=== PATIENT | female | born 1980 ===

== ENCOUNTER 2017-09-14 12:17 | Emergency (ER) | payer MEDICAID, OTHER ==
[2017-09-14 12:17] VITALS: BMI 28.3
[2017-09-14] MEDS ORDERED: Lidocaine 5% Patch TD STA (12:48)
--- NOTE | 2017-09-14 12:49 | C.PDOC ---
History Of Present Illness 36 yr old female with PMHx of asthma, fibroids and hysterectomy, presents to the ER with complaints of low back pain for the past 2 days. Patient reports she went to [facility] 3 days ago and yesterday and was told she is in need of MRI for possible Herniated disc. Patient also states her left foot went numb for 2 hrs yesterday and it began to tingle and got better. States her left foot felt weak. States the pain is 8/10 and stabbing in nature. Patient reports using Aleve and muscle relaxer. Patient states the pain is worse when she stands and bends. Denies chest pain, SOB, nausea, vomiting, abdominal pain, dysuria, hematuria, bowel and bladder incontinence, weakness or numbness. Time Seen by Provider: 09/14/17 12:38 Chief Complaint (Nursing): Back Pain History Per: Patient History/Exam Limitations: no limitations Onset/Duration Of Symptoms: Days (2 weeks) Past Medical History Reviewed: Historical Data, Nursing Documentation, Vital Signs Vital Signs: Last Vital Signs Temp 98.2 F 09/14/17 12:21 Pulse 74 09/14/17 14:47 Resp 18 09/14/17 14:47 BP 119/86 09/14/17 14:47 Pulse Ox 98 09/14/17 15:30 - Medical History PMH: Arthritis, Asthma, Back Problems, Chronic Pain (neck) Family History: States: Diabetes - Social History Hx Tobacco Use: No Hx Alcohol Use: No Hx Substance Use: No - Immunization History Hx Tetanus Toxoid Vaccination: No Hx Influenza Vaccination: No Hx Pneumococcal Vaccination: No Review Of Systems Except As Marked, All Systems Reviewed And Found Negative. Cardiovascular: Negative for: Chest Pain Respiratory: Negative for: Shortness of Breath Gastrointestinal: Negative for: Nausea, Vomiting, Abdominal Pain Genitourinary: Negative for: Dysuria, Incontinence, Hematuria Musculoskeletal: Positive for: Back Pain (Low back pain), Other (Left foot weakness) Neurological: Negative for: Weakness, Numbness Physical Exam - Physical Exam Appears: Non-toxic, No Acute Distress Skin: Warm, Dry, No Rash Head: Atraumatic, Normacephalic Oral Mucosa: Moist Respiratory: Normal Breath Sounds, No Rales, No Rhonchi, No Stridor, No Wheezing Gastrointestinal/Abdominal: Normal Exam, Soft, No Tenderness, No Guarding, No Rebound Back: Other ((+) Low back pain L4 an L5. Pain with bending.) Extremity: Normal ROM, No Tenderness, No Calf Tenderness, Capillary Refill (<2 secs), No Swelling Neurological/Psych: Oriented x3, Normal Speech, Normal Motor, Normal Sensation ED Course And Treatment O2 Sat by Pulse Oximetry: 98 (RA) Pulse Ox Interpretation: Normal - CT Scan/US MRI - Spinal Canal Lumbar Other Rad Studies (CT/US): Read By Radiologist, Radiology Report Reviewed CT/US Interpretation: PROCEDURE: MR LUMBAR SPINE WITHOUT CONTRAST. HISTORY: Low back pain left leg weak;r/o cord compression. COMPARISON: None available. TECHNIQUE: Multiecho multiplanar sequences were performed through the lumbar spine without the use of intravenous contrast. FINDINGS: Normal lumbar lordosis. Vertebral body heights are preserved. Marrow signal unremarkable. Conus medullaris unremarkable at the level of T12. Paraspinal soft tissues are unremarkable. T12-L1: No disc herniation, spinal canal stenosis or neural foraminal narrowing. L1-2: Mild degenerative disc changes. No disc herniation, spinal canal stenosis or neural foraminal narrowing. L2-3: Moderate degenerative disc changes. Small osteophyte disc bulge complex noted without evidence of significant spinal or neural foraminal narrowing. L3-4: Small to moderate size osteophyte disc bulge complex associated with mild posterior ligament hypertrophy which resulting in mild spinal stenosis. No evidence of significant neural foraminal narrowing. L4-5: Small broad-based disc bulge noted without evidence of significant spinal or neural foraminal narrowing. L5-S1: No disc herniation, spinal canal stenosis or neural foraminal narrowing. OTHER FINDINGS: None. IMPRESSION: No evidence of cord compression at the lower thoracic spine or at the level of the conus medullaris. [id number] degenerative disc changes more prominent at L2- L3. Small osteophyte disc bulge complex at L2-L3 and L3-L4. Medical Decision Making Medical Decision Making: Initial impression: Low back pain, herniated disc Initial plan: * MRI - Spinal Canal Lumbar * Lidoderm TD * Motrin PO * Tylneol PO * Valium PO Progress note(s): Pt feels better. No cord compression. Will d/c home. Disposition Counseled Patient/Family Regarding: Studies Performed, Diagnosis, Need For Followup, Rx Given - Disposition Referrals: Varinder Lara MD [Medical Doctor] - Disposition: HOME/ ROUTINE Disposition Time: 15:31 Condition: IMPROVED Additional Instructions: Ms. Sherman, thank you for letting us take care of you today. Return to the ER if your symptoms worsen, or if any problems. Take the medication listed below as prescribed. Please call Dr. Varinder Lara (pain management physician) at the phone number listed below for a re-evaluation. Please take a copy of the MRI report with you. Prescriptions: Acetaminophen [Tylenol 325mg tab] 3 tab PO Q6 PRN #30 tab PRN Reason: Pain, Moderate (4-7) Ibuprofen [Motrin Tab] 1 tab PO TID PRN #30 tab PRN Reason: Pain, Moderate (4-7) Lidocaine 5% [Lidoderm] 1 patch TD Q12 PRN #14 patch PRN Reason: Pain, Moderate (4-7) Instructions: Acute Low Back Pain (ED) Forms: [facility] (Spanish), General Discharge Instructions Print Language: LEBANESE - POA Present On Arrival: None - Clinical Impression Clinical Impression: Back pain - Scribe Statement The provider has reviewed the documentation as recorded by the Sunilibe Kaycee Barnes Provider Attestation: All medical record entries made by the Sunilibe were at my direction and personally dictated by me. I have reviewed the chart and agree that the record accurately reflects my personal performance of the history, physical exam, medical decision making, and the department course for this patient. I have also personally directed, reviewed, and agree with the discharge instructions and disposition.
[2017-09-14] MEDS ORDERED: Lidocaine 5% Patch TD ONE (12:58)
[2017-09-14 15:20] VITALS: O2SAT 98
--- NOTE | 2017-09-14 15:25 | MRI ---
PROCEDURE: MR LUMBAR SPINE WITHOUT CONTRAST HISTORY: Low back pain left leg weak;r/o cord compression COMPARISON: None available. TECHNIQUE: Multiecho multiplanar sequences were performed through the lumbar spine without the use of intravenous contrast. FINDINGS: Normal lumbar lordosis. Vertebral body heights are preserved. Marrow signal unremarkable. Conus medullaris unremarkable at the level of T12 Paraspinal soft tissues are unremarkable. T12-L1: No disc herniation, spinal canal stenosis or neural foraminal narrowing. L1-2: Mild degenerative disc changes. No disc herniation, spinal canal stenosis or neural foraminal narrowing. L2-3: Moderate degenerative disc changes. Small osteophyte disc bulge complex noted without evidence of significant spinal or neural foraminal narrowing L3-4: Small to moderate size osteophyte disc bulge complex associated with mild posterior ligament hypertrophy which resulting in mild spinal stenosis. No evidence of significant neural foraminal narrowing. L4-5: Small broad-based disc bulge noted without evidence of significant spinal or neural foraminal narrowing. L5-S1: No disc herniation, spinal canal stenosis or neural foraminal narrowing. OTHER FINDINGS: None. IMPRESSION: No evidence of cord compression at the lower thoracic spine or at the level of the conus medullaris. [id number] degenerative disc changes more prominent at L2-L3. Small osteophyte disc bulge complex at L2-L3 and L3-L4.
[2017-09-14 16:02] VITALS: BP 109/81; PULSE 88; RESP 20; TEMP 97.7
== END 2017-09-14 16:02 | disposition home or self-care (01) ==
LOC: C.ER 12:17
DX: M54.5 Low back pain (principal)